=== PATIENT | female | born 1995 | race Caucasian/White ===

== ENCOUNTER 2016-10-17 15:48 | Emergency (ER) | payer BC ==
[2016-10-17] MEDS ORDERED: LUTERA-28 TABL1 EACH PO (17:15)
== END 2016-10-17 18:04 ==
LOC: EDMED 15:48
DX: S83.412A Sprain of medial collateral ligament of left knee, initial encounter (principal); E66.9 Obesity, unspecified; X50.1XXA Overexertion from prolonged static or awkward postures, initial encounter; Y93.89 Activity, other specified; Y99.8 Other external cause status
CPT/HCPCS: J1885